=== PATIENT | male | born 1985 | race Caucasian/White ===

== ENCOUNTER 2020-12-08 12:45 | Emergency (ER) | payer OTHER | END 2020-12-08 13:43 | disposition home or self-care (01) | LOC: ER1 12:45 | DX: M19.031 Primary osteoarthritis, right wrist (principal) | CPT/HCPCS: 99283 ==

== ENCOUNTER → 2021-11-12 | Outpatient (CLI) | payer OTHER | LOC: KOH-I 10:09 | DX: M25.572 Pain in left ankle and joints of left foot (principal); M25.571 Pain in right ankle and joints of right foot; S82.831A Other fracture of upper and lower end of right fibula, initial encounter for closed fracture; S92.142A Displaced dome fracture of left talus, initial encounter for closed fracture | CPT/HCPCS: 73610 ==